=== PATIENT | male | born 1965 | race Caucasian/White ===

== ENCOUNTER 2023-05-08 18:20 | Emergency (ER) | payer OTHER, BC, SELFPAY ==
[2023-05-08 18:23] VITALS: BP 144/96; PULSE 87; RESP 18; TEMP 36.3; O2SAT 100; BMI 34.3
--- NOTE | 2023-05-08 18:40 | ED.RN ---
PHONE CALL TO SAMUEL FROM [facility] TO NOTIFY OF TEST, SHE GIVES 40 MINUTE ETA
[2023-05-08] MEDS: Diphth,Pertuss(Acell),Tet Vac 0.5 ML Vial IM (18:47)
[2023-05-08] MEDS: Lidocaine 1% (20 ml mdv) 20 ML Vial INFILT (18:48)
--- NOTE | 2023-05-08 19:10 | RAD_ITS ---
INDICATION: Injury/Pain EXAMINATION/TECHNIQUE: X-RAY - RIGHT HAND XR Fingers Min 2 Views 3 VIEWS COMPARISON: None FINDINGS: SOFT TISSUES: No soft tissue swelling or gas. Small second distal phalangeal radiopaque debris. BONES/JOINTS: Traumatic amputation of the distal second distal phalangeal tuft. Normal alignment. Joint spaces are maintained.. No sclerotic or destructive changes observed. RAD/Finger(s) Min 2 Views IMPRESSION: Second distal phalanx distal tuft traumatic amputation. Electronically Signed: Ernesto Miller MD at 19:23 EDT ,
[2023-05-08] MEDS: Cefazolin 1 GM/50 ML BAG IV (19:24)
--- NOTE | 2023-05-08 21:04 | EDS_ITS ---
HPI History of Present Illness HPI Narrative: Patient presents with lacerations to his right index finger and ring finger that occurred today while he was at work. 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 Patient is unsure of his last tetanus. Patient denies any paresthesias or weakness. Patient states the ale hit the distal phalanx of his index finger and the PIP joint of the ring finger. Patient is unsure of his last tetanus. Chief Complaint: Laceration Informant: patient Onset/Context/Timing Onset: Today Context: Sudden Onset Timing: Continuous Quality of Pain: Dull Location: Right index finger and ring finger Worsened by: Nothing Relieved by: Nothing Associated Symptoms Associated Symptoms: Positive for Parasthesia; Negative for Weakness or Loss of Funtion Narrative Tetanus Immunization: Unknown PFSH PFSH Medical History no medical history no medical history Home Medications cephalexin 500 mg capsule 500 mg PO Q6 #40 CAPSULES 05/08/23 [Rx Last Taken Unknown] hydrocodone-acetaminophen 5-325mg 5mg-325mg 1 tab PO Q6H PRN PRN Pain 3 days #10 TABLETS 05/08/23 [Rx Last Taken Unknown] Allergy/AdvReac Type Severity Reaction Status Date / Time aspirin Allergy Hives Verified 05/08/23 18:23 ibuprofen Allergy Hives Verified 05/08/23 18:23 Surgical History no surgical history Social History Smoking Status: Never smoker ROS ROS ED Constitutional Constitutional ED: Denies chills or fever(s) Eyes Eyes: Denies blurry vision or change in vision ENT ENT ED: Denies rhinorrhea or sore throat Cardiovascular Cardiovascular: Denies chest pain or palpitations Respiratory/Chest Respiratory/Chest: Denies cough or dyspnea Gastrointestinal Gastrointestinal: Denies nausea or vomiting Genitourinary Genitourinary ED: Denies dysuria or hematuria Musculoskeletal Musculoskeletal: Denies back pain or neck pain Integumentary Denies abscess or rash Neurologic Neurologic: Denies headache(s) or weakness Allergic/Immunologic Allergic/Immunologic ED: Denies mouth swelling or urticaria EXAM Physical Exam Const Vital Signs: 05/08/23 18:23 Temperature 97.4 F L Temperature Source Temporal Pulse Rate 87 Respiratory Rate 18 Blood Pressure 144/96 H Blood Pressure Mean 112 Pulse Ox 100 Positive well nourished and well developed General Appearance ED: well developed and NAD HEENT Reports moist mucous membranes Neck full ROM and supple Extremity Extremity Narrative: There is a partial amputation of the dorsal half of the distal phalanx of the right index finger. There is mild bleeding. There is tenderness to palpation over the distal phalanx of the right index finger. There is full range of motion of the MP, PIP, and DIP joints. There is a 2 cm full-thickness linear laceration over the dorsal aspect of the PIP joint of the right ring finger. There is moderate gapping of the wound margins. There are no foreign bodies noted. There is no active bleeding noted. Sensation was intact to light touch in all digits. Capillary refill was less than 2 seconds in all digits. There is full range of motion of the MP, PIP, and DIP joints of the right ring finger. Neuro oriented x3, CN's II-XII intact bilaterally, moves all extremities, no focal motor deficits and no sensory deficits noted Sensorium / Orientation: alert Motor Exam: strength 5/5 throughout Psych mental status grossly normal MDM MDM MDM Narrative Medical decision making narrative: Differential diagnosis includes open fracture, partial amputation, laceration, and soft tissue injury. X-rays of the right hand will be obtained to assess for fracture. Radiography Diagnostic Testing: Clinical Impression(s) from Imaging Studies Finger X-Ray 05/08/23 19:10 IMPRESSION: Second distal phalanx distal tuft traumatic amputation. Electronically Signed: Ernesto Miller MD at 19:23 EDT Reading Location ID and State: [facility] / [place] Tel , Service support , X-rays of the right index finger were obtained. There are 3 views. On my independent interpretation, there is a traumatic amputation of the distal phalanx of the tuft of the index finger. There are no foreign bodies noted. Radiologist also interpreted the x-rays and agrees. Treatment and Re-Evaluation Narrative: The index and ring fingers were anesthetized 1% lidocaine via digital block. The wounds were cleaned and irrigated with copious amounts of normal saline. The right ring finger laceration was closed with 4 simple interrupted #4-0 nylon sutures under sterile technique. The index finger was closed with 3 subcutaneous 5-0 Vicryl sutures under sterile technique. I was able to use enough tissue to cover the exposed bone. There is no need to rongeur the bone. Patient was given a dose of Ancef here. Patient was given a tetanus booster. Patient was given a prescription for Keflex. Patient was given a referral for orthopedic hand. Patient was instructed to follow-up with his primary care physician in 5 to 7 days. Patient was also instructed to follow-up with a hand surgeon in 5 to 7 days. Patient was instructed return if worse in any way. Patient understood and was agreeable with the plan. All questions were answered. Procedures Lacerations Right ring finger: Length: 2 cm Depth: Sub Q Shape: Linear Prep: Sterile Conditions and Chlorhexadine Laceration repair: Digital block, Irrigated, Lidocaine, Skin sutures and Wound explored Irrigated (ml): 100 Number of Sutures/Ben: 4 Suture Information: Ethilon, Simple and 4-0 Right index finger: Length: 3.5 cm Depth: Fascia Shape: Partial amputation Prep: Sterile Conditions and Chlorhexadine Laceration repair: Digital block, Irrigated, Lidocaine and Subcutaneous sutures Irrigated (ml): 100 Number of Sutures/[place]: 3 Suture Information: Vicryl, Simple and 5-0 Discharge Plan Triage Chief Complaint: Laceration ED Provider: Ronen Gaston Dx/Rx/DC Orders Clinical Impression: Partial traumatic amputation of right index finger through phalanx, Open fracture of distal phalanx of finger of right hand, Laceration of right ring finger Instructions: ED Finger Tip Amputation Open ..., ED Laceration Hand with ... Prescriptions: New hydrocodone-acetaminophen [hydrocodone-acetaminophen] 5-325 mg tablet 1 tab PO Q6H PRN PRN (Reason: Pain) 3 Days Qty: 10 0RF cephalexin [cephalexin] 500 mg capsule 500 mg PO Q6 Qty: 40 0RF Stand Alone Forms: Work Status Form Primary Care Provider: Care Physician,No Primary Referrals: Romero Spicer MD [Med Staff - Active Staff] - 5-7 Days Care Physician,No Primary [Primary Care Provider] - Clinic,NOW [Non-Staff] - 5-7 Days Disposition Disposition: Home, Self Care
== END 2023-05-08 21:52 | disposition home or self-care (01) ==
PROVIDERS: Emergency Provider Emergency Medicine; Visit Provider Emergency Medicine
DX: S68.620A Partial traumatic transphalangeal amputation of right index finger, initial encounter (principal); Z23 Encounter for immunization; W29.8XXA Contact with other powered hand tools and household machinery, initial encounter; S61.214A Laceration without foreign body of right ring finger without damage to nail, initial encounter; Y99.0 Civilian activity done for income or pay
CPT/HCPCS: 12002; 11750; 73140; 90715; 96365; 99282; A4216

== ENCOUNTER → 2025-09-02 | Outpatient (CLI) | payer BC, SELFPAY | END | disposition home or self-care (01) | LOC: SL 20:04 | PROVIDERS: Referring Provider Family Medicine; Visit Provider Family Medicine | DX: G47.19 Other hypersomnia (principal); I48.0 Paroxysmal atrial fibrillation; G47.8 Other sleep disorders; F51.01 Primary insomnia | CPT/HCPCS: 95810 ==